=== PATIENT | male | born 1955 ===

== ENCOUNTER 2018-04-13 08:58 | Inpatient (IN) | payer OTHER ==
[2018-04-13 08:58] VITALS: BMI 30.9
[2018-04-13 11:12] LABS: BASO # 0.1 K/uL (0.0-0.2); EOS # 0.2 K/uL (0.0-0.7); EOS % 2.7 % (0.0-4.0); HEMOGLOBIN 14.2 g/dL (12.0-18.0); LYMPH # 1.9 K/uL (1.0-4.3); LYMPH % 24.4 % (20.0-40.0); MEAN CORPUSCULAR HEMOGLOBIN 32.9 pg (27.0-31.0); MEAN PLATELET VOLUME 7.8 fL (7.2-11.7); MONO # 0.5 K/uL (0.0-0.8); MONO % 6.8 % (0.0-10.0); NEUT # 5.1 K/uL (1.8-7.0); NEUT % 65.1 % (50.0-75.0); NRBC % 0.1 % (0.0-2.0); RBC 4.32 Mil/uL (4.40-5.90); RED CELL DISTRIBUTION WIDTH 12.4 % (11.5-14.5); WHITE BLOOD COUNT 7.9 K/uL (4.8-10.8)
[2018-04-13 11:24] LABS: ALB/GLOB RATIO 1.3 (1.0-2.1); ALBUMIN 4.2 g/dL (3.5-5.0); ALT/SGPT 26 U/L (21-72); AST/SGOT 23 U/L (17-59); BLOOD UREA NITROGEN 18 mg/dL (9-20); CALCIUM 9.2 mg/dl (8.6-10.4); GFR AFRICAN-AMERICAN > 60; GFR NON-AFRICAN AMERICAN > 60
[2018-04-13 12:01] LABS: INR 1.2; PROTHROMBIN TIME 12.6 SECONDS (9.7-12.2)
[2018-04-13] MEDS ORDERED: Enoxaparin 150 mg Syringe SC STA (12:20)
[2018-04-13] MEDS ORDERED: Enoxaparin 100 mg Syringe ONE (13:33)
--- NOTE | 2018-04-13 13:58 | C.PDOC ---
History Of Present Illness 62 y/o male presents to the ED complaining of left calf pain for the past couple of days. He admits to having a Hx of DVT approximately 13 years ago and was taking Coumadin at the time but was advised to stop taking medication by PCP. The patient denies any trauma, prolonged sitting, chest pain or SOB. Time Seen by Provider: 04/13/18 10:37 Chief Complaint (Nursing): Lower Extremity Problem/Injury History/Exam Limitations: no limitations Onset/Duration Of Symptoms: Days Current Symptoms Are (Timing): Still Present Recent travel outside of the [place]: No Past Medical History Reviewed: Historical Data, Nursing Documentation, Vital Signs Vital Signs: Last Vital Signs Temp 97.8 F 04/13/18 17:00 Pulse 82 04/13/18 17:00 Resp 20 04/13/18 17:00 BP 134/87 04/13/18 17:00 Pulse Ox 98 04/13/18 17:00 - Medical History PMH: Deep Vein Thrombosis (L leg) Other Surgeries: Drained fluid from scrotum - [facility] Procedures APPLICATION OF SPLINT (09/16/14) Family History: States: Unknown Family Hx - Social History Hx Tobacco Use: No Hx Alcohol Use: Yes Hx Substance Use: No - Immunization History Hx Tetanus Toxoid Vaccination: No Hx Influenza Vaccination: No Hx Pneumococcal Vaccination: No Review Of Systems Except As Marked, All Systems Reviewed And Found Negative. Constitutional: Negative for: Fever Cardiovascular: Negative for: Chest Pain Respiratory: Negative for: Shortness of Breath Musculoskeletal: Positive for: Leg Pain (left calf pain) Physical Exam - Physical Exam Appears: Well, Non-toxic, No Acute Distress Skin: Normal Color, Warm, No Rash Head: Atraumatic, Normacephalic Eye(s): bilateral: Normal Inspection, PERRL, EOMI Oral Mucosa: Moist Neck: Supple Chest: Symmetrical Cardiovascular: Rhythm Regular, No Murmur Respiratory: Normal Breath Sounds, No Rales, No Rhonchi, No Wheezing Extremity: Calf Tenderness (mild) Extremity: Bilateral: Other ( chronic venous stasis) Neurological/Psych: Oriented x3 Gait: Steady ED Course And Treatment - Laboratory Results Result Diagrams: 04/13/18 11:06 04/13/18 11:06 O2 Sat by Pulse Oximetry: 97 (RA) Pulse Ox Interpretation: Normal Medical Decision Making Medical Decision Making: Impression: 62 y/o male, with Hx of DVT 13 years ago, c/o left calf pain Plan: --BBK --EKG --CMP --CBC --PTT --PT --Lovenox 100 mg Progress: After labs and US were obtained the Hospitalist was called. The hospitalist recommended Lovenox and admission to medical floor. Disposition - Disposition Disposition: HOSPITALIZED Disposition Time: 12:00 Condition: STABLE - Clinical Impression Clinical Impression: Deep venous thrombosis of lower extremity - PA / CAREER TECHNICAL EDUCATION TEACHER / Resident Statement MD/DO has reviewed & agrees with the documentation as recorded. - Scribe Statement The provider has reviewed the documentation as recorded by the Scribe (Lisa Woods) Provider Attestation: All medical record entries made by the Scribe were at my direction and personally dictated by me. I have reviewed the chart and agree that the record accurately reflects my personal performance of the history, physical exam, medical decision making, and the department course for this patient. I have also personally directed, reviewed, and agree with the discharge instructions and disposition.
--- NOTE | 2018-04-13 14:00 | CP.PCM.HP ---
<Valentine White - Last Filed: 04/13/18 15:07> History of Present Illness - History of Present Illness History of Present Illness: PGY-1 Valentine White D.O. Medicine H&P for Dr. White's service: Troy Godinez is a 62 yo male with no past medical history who presents with Left calf pain. He states that the pain started about 3 days ago. He states that he got sneakers that were too small, and he wore them to workout at the gym. He describes his big toe on his left foot being white when he removed them but then this resolved later in the day. He states it was more painful when walking. He did not take or do anything to relieve the pain. Patient reports that he has had a DVT in the left leg previously approximately 15 years ago. At that time, he was given heparin in the hospital and then took Coumadin as an outpatient for 6 months. He denies swelling or redness. He denies any current medication use, including exogenous steroids. He denies trauma/injury or recent surgery. He denies a sedentary lifestyle, as he goes to the gym very often. He denies recent travel, including prolonged time on planes. The patient denies any loss of sensation, numbness, or tingling of the left leg. He denies pain elsewhere. He denies SOB or palpitations. PMH: DVT LLE 15 yrs ago Meds: denies All: NKA FH: Mom ()- T2DM Denies any cancers, blood disorders No children SH: Lives alone in Former smoker- quit 8 yrs ago, smoked many years Alcohol- 2 beers or whiskeys/week Denies illicit drug use, including IVDA PMD: none Present on Admission - Present on Admission Any Indicators Present on Admission: Yes History of DVT/PE: Yes History of Uncontrolled Diabetes: No Urinary Catheter: No Decubitus Ulcer Present: No Review of Systems - Constitutional Constitutional: absent: Chills, Fever, Headache, Weakness - EENT Eyes: absent: Blurred Vision, Change in Vision Ears: absent: Tinnitus Nose/Mouth/Throat: Nasal Obstruction. absent: Nasal Congestion, Sore Throat - Cardiovascular Cardiovascular: absent: Chest Pain, Dyspnea, Edema, Irregular Heart Rhythm - Respiratory Respiratory: absent: Dyspnea, Pain on Inspiration, Chest Congestion - Gastrointestinal Gastrointestinal: absent: Abdominal Pain, Constipation, Diarrhea, Nausea, Vomiting - Genitourinary Genitourinary: absent: Dysuria, Hematuria, Urinary Frequency, Urinary Hesitance - Musculoskeletal Musculoskeletal: Myalgias (Left calf). absent: Joint Swelling, Numbness, Tingling - Integumentary Integumentary: absent: Lesions, Pruritus, Rash, Swelling - Neurological Neurological: absent: Numbness, Headaches, Paresthesias, Sensory Deficit, Tingling, Weakness - Psychiatric Psychiatric: absent: Anxiety, Depression - Endocrine Endocrine: absent: Fatigue, Palpitations - Hematologic/Lymphatic Hematologic: absent: Easy Bleeding, Easy Bruising, Lymphadenopathy Past Patient History - Infectious Disease Hx of Infectious Diseases: None - Tetanus Immunizations Tetanus Immunization: Unknown - Past Medical History & Family History Past Medical History?: Yes Past Family History: Reviewed and not pertinent - Past Social History Smoking Status: Former Smoker (quit 8 yrs ago) Chewing Tobacco Use: No Cigar Use: No Occupation: finance Alcohol: Social Drugs: Denies Home Situation {Lives}: Alone Domestic Violence: Negative - PSYCHIATRIC Hx Substance Use: No - SURGICAL HISTORY Other/Comment: Drained fluid from scrotum - ANESTHESIA Hx Anesthesia: Yes Hx Anesthesia Reactions: No Meds Allergies/Adverse Reactions: Allergies Allergy/AdvReac Type Severity Reaction Status Date / Time No Known Allergies Allergy Verified 04/13/18 09:18 Physical Exam - Head Exam Head Exam: ATRAUMATIC, NORMAL INSPECTION, NORMOCEPHALIC - Eye Exam Eye Exam: EOMI, Normal appearance, PERRL - ENT Exam ENT Exam: Mucous Membranes Moist, Normal Exam - Neck Exam Neck exam: Positive for: Normal Inspection - Respiratory Exam Respiratory Exam: Clear to Auscultation Bilateral, NORMAL BREATHING PATTERN - Cardiovascular Exam Cardiovascular Exam: REGULAR RHYTHM, +S1, +S2 - GI/Abdominal Exam GI & Abdominal Exam: Normal Bowel Sounds, Soft - Rectal Exam Rectal Exam: Deferred - Extremities Exam Extremities exam: Positive for: calf tenderness (L lateral), full ROM, normal capillary refill, normal inspection, pedal pulses present. Negative for: joint swelling, pedal edema - Back Exam Back exam: NORMAL INSPECTION - Neurological Exam Neurological exam: Alert, CN II-XII Intact, Oriented x3 - Psychiatric Exam Psychiatric exam: Normal Affect, Normal Mood - Skin Skin Exam: Dry, Intact, Normal Color, Warm Results - Vital Signs Recent Vital Signs: Last Vital Signs Temp 99 F 08/16/18 13:42 Pulse 84 04/13/18 13:42 Resp 16 04/13/18 13:42 BP 126/75 04/13/18 13:42 Pulse Ox 97 04/13/18 13:58 - Labs Result Diagrams: 04/13/18 11:06 04/13/18 11:06 Labs: Laboratory Results - last 24 hr 04/13/18 04/13/18 04/13/18 11:06 11:06 11:06 WBC 7.9 RBC 4.32 L Hgb 14.2 Hct 40.6 MCV 94.0 MCH 32.9 H MCHC 35.0 RDW 12.4 Plt Count 173 MPV 7.8 Neut % (Auto) 65.1 Lymph % (Auto) 24.4 [place] % (Auto) 6.8 Eos % (Auto) 2.7 Baso % (Auto) 1.0 Neut # (Auto) 5.1 Lymph # (Auto) 1.9 [place] # (Auto) 0.5 Eos # (Auto) 0.2 Baso # (Auto) 0.1 PT 12.6 H INR 1.2 APTT 33 Sodium 139 Potassium 4.0 Chloride 103 Carbon Dioxide 25 Anion Gap 16 BUN 18 Creatinine 1.0 Est GFR ( Amer) > 60 Est GFR (Non-Af Amer) > 60 Random Glucose 115 H Calcium 9.2 Total Bilirubin 0.8 AST 23 ALT 26 Alkaline Phosphatase 76 Total Protein 7.5 Albumin 4.2 Globulin 3.3 Albumin/Globulin Ratio 1.3 Blood Type Antibody Screen 04/13/18 11:06 WBC RBC Hgb Hct MCV MCH MCHC RDW Plt Count MPV Neut % (Auto) Lymph % (Auto) [place] % (Auto) Eos % (Auto) Baso % (Auto) Neut # (Auto) Lymph # (Auto) [place] # (Auto) Eos # (Auto) Baso # (Auto) PT INR APTT Sodium Potassium Chloride Carbon Dioxide Anion Gap BUN Creatinine Est GFR ( Amer) Est GFR (Non-Af Amer) Random Glucose Calcium Total Bilirubin AST ALT Alkaline Phosphatase Total Protein Albumin Globulin Albumin/Globulin Ratio Blood Type O POSITIVE Antibody Screen Negative - EKG Data EKG Interpreted by: ER Physician EKG shows normal: Sinus rhythm Rate: Normal Assessment & Plan - Assessment and Plan (Free Text) Assessment: Patient is a 62 yo male without PMH who presents with L calf pain. He was found to have a LLE DVT. 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 Work-up for hypercoagulable states. Plan: DVT of LLE, unprovoked- patient reports previous LLE DVT 15 yrs ago - Lovenox 1 mg/kg (100 mg) SC BID - EKG 04/13 NSR - CT chest/abd/pelvis with IV contrast pending - Factor V, lupus panel, KADEEM, APL, PT gene pending - Hem/onc consulted (Dr. Vasquez) IVF: not indicated Diet: heart healthy: VTE ppx: SCDs contraindicated, on therapeutic Lovenox 100 mg SC BID GI ppx: Pepcid 20 mg PO BID Code status: full code <Brandi White V - Last Filed: 04/13/18 16:43> Results - Vital Signs Recent Vital Signs: Last Vital Signs Temp 97.3 F L 04/13/18 14:32 Pulse 90 04/13/18 14:32 Resp 20 04/13/18 14:32 BP 128/77 04/13/18 14:32 Pulse Ox 98 04/13/18 14:32 - Labs Result Diagrams: 04/13/18 11:06 04/13/18 11:06 Labs: Laboratory Results - last 24 hr 04/13/18 04/13/18 04/13/18 11:06 11:06 11:06 WBC 7.9 RBC 4.32 L Hgb 14.2 Hct 40.6 MCV 94.0 MCH 32.9 H MCHC 35.0 RDW 12.4 Plt Count 173 MPV 7.8 Neut % (Auto) 65.1 Lymph % (Auto) 24.4 [place] % (Auto) 6.8 Eos % (Auto) 2.7 Baso % (Auto) 1.0 Neut # (Auto) 5.1 Lymph # (Auto) 1.9 [place] # (Auto) 0.5 Eos # (Auto) 0.2 Baso # (Auto) 0.1 PT 12.6 H INR 1.2 APTT 33 Sodium 139 Potassium 4.0 Chloride 103 Carbon Dioxide 25 Anion Gap 16 BUN 18 Creatinine 1.0 Est GFR ( Amer) > 60 Est GFR (Non-Af Amer) > 60 Random Glucose 115 H Calcium 9.2 Total Bilirubin 0.8 AST 23 ALT 26 Alkaline Phosphatase 76 Total Protein 7.5 Albumin 4.2 Globulin 3.3 Albumin/Globulin Ratio 1.3 Blood Type Antibody Screen 04/13/18 11:06 WBC RBC Hgb Hct MCV MCH MCHC RDW Plt Count MPV Neut % (Auto) Lymph % (Auto) [place] % (Auto) Eos % (Auto) Baso % (Auto) Neut # (Auto) Lymph # (Auto) [place] # (Auto) Eos # (Auto) Baso # (Auto) PT INR APTT Sodium Potassium Chloride Carbon Dioxide Anion Gap BUN Creatinine Est GFR ( Amer) Est GFR (Non-Af Amer) Random Glucose Calcium Total Bilirubin AST ALT Alkaline Phosphatase Total Protein Albumin Globulin Albumin/Globulin Ratio Blood Type O POSITIVE Antibody Screen Negative Attending/Attestation - Attestation I have personally seen and examined this patient.: Yes I have fully participated in the care of the patient.: Yes I have reviewed all pertinent clinical information: Yes Notes (Text): Patient seen, examined, and case discussed with biomedical specialist. Patient seen in Fast Track Bed 4 in the emergency room. Patient reports for two days prior he has been having calf pain and associated swelling. Patient is not a current smoker, stopped for smoking for 8 years, denies weight loss (reports weight gain), denies recent surgery, denies trauma, patient reports he is very active on his feet. Patient does not see a doctor/GP. Patient reports he was last hospitalized one year for scrotol edema requring surgery intervention. I did ask him if he had his prostate check then and reports this was fine. Patient reports about 10-11 years ago, around 05/09 he had DVT in the same leg had heparin and completed coumadin. Patient noted to be heavy smoker back then. Case discussed with ED doctor as well since the prelim report is reading as distal DVT. However, in light of prior DVT hx, would advised for anticoagulation. The concern is why is patient is having an unprovoked if he reports he has quit smoking and essentially the pertient negatives as noted above. We will consult heme-oncology; We will obtain CT Chest/Abdomen/Pelvis with IV contrast to rule out overt malignancy. patient denies shortness of breathe and EKG is normal sinus rhythm. Assessment/Plan 1) Unprovoked DVT Assessment/Plan * Lovenox 1 mg/kg (100 mg) SC BID * EKG 04/13 NSR * CT chest/abd/pelvis with IV contrast pending * Factor V, lupus panel, KADEEM, APL, PT gene pending * Hem/onc consulted (Dr. Vasquez) * awaiting official report of venous US 2) Prophylactic measure * IVF: not indicated * Diet: heart healthy * VTE ppx: SCDs contraindicated given acute DVT * Lovenox 1mg/kg subq12 * GI ppx: Pepcid 20 mg PO BID
[2018-04-13 14:33] VITALS: RESP 20
[2018-04-13] MEDS ORDERED: Iodixanol 320 MG/ML 100 ML BOTTLE IV ONE (17:20)
--- NOTE | 2018-04-13 17:50 | CP.PCM.CON ---
History of Present Illness - History of Present Illness History of Present Illness: History from chart, patient is in CAT scan. 62 yo man with history of left lower extremity DVT admitted with pain in the left calf for a few days prior to admission. Does not have any obvious risk factors, no recent surgery, travel, or other acquired risks like diabetes, obesity. The patient says he has been living in his car for 2 days prior to finding that his left toe had turned white, associated with numbness. He also mentioned that he was wearing the wrong sized shoe, that irritated his toes H/O left lower extremity DVT around 13 years ago, was on Coumadin, for 6 months Past Patient History - Infectious Disease Hx of Infectious Diseases: None - Tetanus Immunizations Tetanus Immunization: Unknown - Past Medical History & Family History Past Medical History?: Yes Past Family History: Reviewed and not pertinent - Past Social History Smoking Status: Former Smoker (quit 8 yrs ago) Chewing Tobacco Use: No Cigar Use: No Occupation: finance Alcohol: Social Drugs: Denies Home Situation {Lives}: Alone Domestic Violence: Negative - CARDIAC Hx Cardiac Disorders: No - PULMONARY Hx Respiratory Disorders: No - NEUROLOGICAL Hx Neurological Disorder: No - HEENT Hx HEENT Problems: No - RENAL Hx Chronic Kidney Disease: No - ENDOCRINE/METABOLIC Hx Endocrine Disorders: No - HEMATOLOGICAL/ONCOLOGICAL Hx Blood Disorders: Yes Other/Comment: DVT - INTEGUMENTARY Hx Dermatological Problems: No - MUSCULOSKELETAL/RHEUMATOLOGICAL Hx Musculoskeletal Disorders: Yes Hx Falls: No Hx Fractures: Yes (right hand) - GASTROINTESTINAL Hx Gastrointestinal Disorders: No - GENITOURINARY/GYNECOLOGICAL Hx Genitourinary Disorders: No - PSYCHIATRIC Hx Substance Use: No - SURGICAL HISTORY Other/Comment: Drained fluid from scrotum - ANESTHESIA Hx Anesthesia: Yes Hx Anesthesia Reactions: No Meds Allergies/Adverse Reactions: Allergies Allergy/AdvReac Type Severity Reaction Status Date / Time No Known Allergies Allergy Verified 04/13/18 09:18 - Medications Medications: Current Medications Acetaminophen (Tylenol 325mg Tab) 650 mg PO Q6 PRN PRN Reason: Pain, Mild (1-3) Enoxaparin Sodium (Lovenox) 100 mg SC Q12 SHIVANI Famotidine (Pepcid) 20 mg PO BID SHIVANI Last Admin: 04/13/18 17:13 Dose: Not Given Results - Vital Signs Recent Vital Signs: Last Vital Signs Temp 97.8 F 04/13/18 17:00 Pulse 82 04/13/18 17:00 Resp 20 04/13/18 17:00 BP 134/87 04/13/18 17:00 Pulse Ox 97 04/13/18 17:22 - Labs Result Diagrams: 04/13/18 11:06 04/13/18 11:06 Labs: Laboratory Results - last 24 hr 04/13/18 04/13/18 04/13/18 11:06 11:06 11:06 WBC 7.9 RBC 4.32 L Hgb 14.2 Hct 40.6 MCV 94.0 MCH 32.9 H MCHC 35.0 RDW 12.4 Plt Count 173 MPV 7.8 Neut % (Auto) 65.1 Lymph % (Auto) 24.4 [place] % (Auto) 6.8 Eos % (Auto) 2.7 Baso % (Auto) 1.0 Neut # (Auto) 5.1 Lymph # (Auto) 1.9 [place] # (Auto) 0.5 Eos # (Auto) 0.2 Baso # (Auto) 0.1 PT 12.6 H INR 1.2 APTT 33 Sodium 139 Potassium 4.0 Chloride 103 Carbon Dioxide 25 Anion Gap 16 BUN 18 Creatinine 1.0 Est GFR ( Amer) > 60 Est GFR (Non-Af Amer) > 60 Random Glucose 115 H Calcium 9.2 Total Bilirubin 0.8 AST 23 ALT 26 Alkaline Phosphatase 76 Total Protein 7.5 Albumin 4.2 Globulin 3.3 Albumin/Globulin Ratio 1.3 Blood Type Antibody Screen 04/13/18 11:06 WBC RBC Hgb Hct MCV MCH MCHC RDW Plt Count MPV Neut % (Auto) Lymph % (Auto) [place] % (Auto) Eos % (Auto) Baso % (Auto) Neut # (Auto) Lymph # (Auto) [place] # (Auto) Eos # (Auto) Baso # (Auto) PT INR APTT Sodium Potassium Chloride Carbon Dioxide Anion Gap BUN Creatinine Est GFR ( Amer) Est GFR (Non-Af Amer) Random Glucose Calcium Total Bilirubin AST ALT Alkaline Phosphatase Total Protein Albumin Globulin Albumin/Globulin Ratio Blood Type O POSITIVE Antibody Screen Negative Assessment & Plan (1) Deep venous thrombosis of lower extremity Assessment and Plan: 62 yo man with left lower extremity DVT , recurrent disease, associated with immobilization, CAT scan pending. Patient is relatively asymptomatic, discussed risks of anticoagulation, he is aware of the need for AC. The patient will call me for the results of the hypercoagulable work up Status: Acute
--- NOTE | 2018-04-13 18:36 | CT ---
Date of service: 04/13/2018 PROCEDURE: CT Chest, Abdomen and Pelvis with intravenous contrast HISTORY: Unprovoked DVT COMPARISON: None available. TECHNIQUE: IV dose administered: Radiation dose: Total exam DLP = 1142.37 mGy-cm. This CT exam was performed using one or more of the following dose reduction techniques: Automated exposure control, adjustment of the mA and/or kV according to patient size, and/or use of iterative reconstruction technique. FINDINGS: CT CHEST WITH CONTRAST: LUNGS: Minimal linear scarring seen in the left lingular and middle lobe regions. . There is also a localized area of vague ground-glass opacity in the left anterior upper lobe. Mild atelectasis of the right lower lobe seen as well. Lung lainez are otherwise clear. MEDIASTINUM: Heart size is within range of normal. No significant pericardial effusion. At ascending thoracic aorta measures approximately 3.3 cm and descending thoracic aorta measures approximately 2.6 cm. There are filling defects seen within the distal aspect of the right main pulmonary artery extending superiorly into lobar and us proximal segmental branches of the right upper lobe as well as inferiorly into the right lower lobar and proximal segmental branches of the lower lobe pulmonary arteries consistent with pulmonary emboli. There are also filling defects seen within the distal left main pulmonary artery, upper lobes and lower lobe as well as the proximal segmental branches also consistent with pulmonary emboli. Pulmonary trunk measures approximately 2.8 cm. The central airways are midline and patent. No large central endoluminal lesions. Air is present throughout the esophagus. Small hiatal hernia. LYMPH NODES: Several mediastinal lymph nodes are present. PLEURA: Unremarkable. No pneumothorax. No pleural fluid. BONES: Minor multilevel degenerative spondylosis of the thoracic spine. There are no acute compression fractures no retropulsed fragments. Minor chronic appearing anterior stature loss of the L1 segment. OTHER FINDINGS: None. CT ABDOMEN AND PELVIS: LIVER: Liver is upper limits of normal measuring just over 18 cm in CC dimension. Mild diffuse fatty hepatic infiltration. . No obvious hepatic mass or collection. Portal and splenic veins are opacified. GALLBLADDER AND BILE DUCTS: Gallbladder is incompletely distended which presumably accounts for thick-walled appearance ; likely due to nonfasting. No intraluminal gallbladder calculi identified on this study. PANCREAS: Pancreas is slightly atrophic and fatty replaced. SPLEEN: Spleen exhibits normal size and attenuation pattern without mass collection or calcification. ADRENALS: No adrenal lesions are state identified. KIDNEYS AND URETERS: There is a 4.8 x 4.7 cm x 4.0 cm partially exophytic cyst arising from the lower pole left kidney. There is an additional tiny cortical cyst anterior aspect midpole left kidney. No evidence of nephrolithiasis or hydronephrosis. VASCULATURE: Unremarkable. No aortic aneurysm. BOWEL: Evaluation of the bowel is limited due to the lack of oral contrast material. The stomach is incompletely distended. Visualized loops of small bowel exhibit normal contour and caliber. No evidence of acute mechanical small bowel obstruction. APPENDIX: Normal-appearing appendix of best seen non coronal sequence image number [id number]. No periappendiceal inflammatory changes. . PERITONEUM: Unremarkable. No free fluid. No free air. Small of fat containing umbilical hernia. LYMPH NODES: Note made of multiple small nonspecific retroperitoneal lymph nodes. BLADDER: Unremarkable. REPRODUCTIVE: Suspect left-sided hydrocele extending superiorly into the inferior margin of the left inguinal canal. BONES: No acute compression fractures nor retropulsed fragments. Minor chronic anterior stature loss of the L1 segment. Mild multilevel degenerative spondylosis. OTHER FINDINGS: None. IMPRESSION: There are extensive bilateral upper and lower lobe pulmonary emboli . Note that these findings were discussed with 5T Nurse at approximately 6:16 p.m. with written down and read back verification. . Minor the linear atelectasis and or scarring changes the middle lobe and lingular regions. There is also a vague localized area of ground-glass opacity left anterior upper lung field. Probable left-sided hydrocele extending superiorly into the distal aspect left left inguinal canal. Large left renal cyst. Mild fatty hepatic infiltration. Incompletely distended gallbladder likely due to nonfasting state
[2018-04-14] MEDS ORDERED: Enoxaparin 100 mg Syringe SC SCH (01:35)
--- NOTE | 2018-04-14 06:52 | CP.PCM.PN ---
Subjective - Date & Time of Evaluation Date of Evaluation: 04/14/18 Time of Evaluation: 09:20 - Subjective Subjective: PGY-1 Valentine White D.O. Medicine progress note for Dr. Dunlap service: Objective - Vital Signs/Intake and Output Vital Signs (last 24 hours): Temp Pulse Resp BP Pulse Ox 97.2 F L 63 20 125/83 96 04/14/18 00:00 04/14/18 04:20 04/14/18 00:00 04/14/18 00:00 04/14/18 00:00 Intake and Output: 04/13/18 04/14/18 18:59 06:59 Intake Total 800 Balance 800 - Medications Medications: Current Medications Acetaminophen (Tylenol 325mg Tab) 650 mg PO Q6 PRN PRN Reason: Pain, Mild (1-3) Enoxaparin Sodium (Lovenox) 100 mg SC Q12 COUNTS INCLUDE 234 BEDS AT THE [facility] Last Admin: 04/14/18 00:36 Dose: 100 mg Famotidine (Pepcid) 20 mg PO BID COUNTS INCLUDE 234 BEDS AT THE [facility] Last Admin: 04/13/18 17:13 Dose: Not Given - Labs Labs: 04/13/18 11:06 04/13/18 11:06 PT 12.6 SECONDS (9.7-12.2) H 04/13/18 11:06 INR 1.2 04/13/18 11:06 APTT 33 SECONDS (21-34) 04/13/18 11:06 - Constitutional Appears: Well, No Acute Distress - Head Exam Head Exam: ATRAUMATIC, NORMAL INSPECTION, NORMOCEPHALIC - Eye Exam Eye Exam: EOMI, Normal appearance - ENT Exam ENT Exam: Mucous Membranes Moist, Normal Exam - Neck Exam Neck Exam: Normal Inspection - Respiratory Exam Respiratory Exam: Clear to Ausculation Bilateral, NORMAL BREATHING PATTERN - Cardiovascular Exam Cardiovascular Exam: REGULAR RHYTHM, +S1, +S2 - GI/Abdominal Exam GI & Abdominal Exam: Soft, Normal Bowel Sounds - Rectal Exam Rectal Exam: Deferred - Extremities Exam Extremities Exam: Full ROM, Normal Capillary Refill, Normal Inspection - Back Exam Back Exam: NORMAL INSPECTION - Neurological Exam Neurological Exam: Alert, Awake, CN II-XII Intact, Oriented x3 - Psychiatric Exam Psychiatric exam: Normal Affect, Normal Mood - Skin Skin Exam: Dry, Intact, Normal Color, Warm Assessment and Plan - Assessment and Plan (Free Text) Plan: Patient is a 62 yo male without PMH who presents with L calf pain. He was found to have a LLE DVT. 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 Work-up for hypercoagulable states. Plan: Bilateral pulmonary emboli and DVT of LLE, unprovoked- patient reports previous LLE DVT 15 yrs ago - Lovenox 1 mg/kg (100 mg) SC BID - EKG 04/13 NSR - CT chest/abd/pelvis with IV contrast 04/13: multiple b/l upper and lower pulmonary emboli, L anterior upper lung field ground-glass opacity - Factor V, lupus panel, KADEEM, APL, PT gene pending - Hem/onc consulted (Dr. Vasquez) Renal cyst - Seen on CT - Renal u/s pending IVF: not indicated Diet: heart healthy: VTE ppx: SCDs contraindicated, on therapeutic Lovenox 100 mg SC BID GI ppx: Pepcid 20 mg PO BID Code status: full code
[2018-04-14 07:42] LABS: INR 1.1
[2018-04-14 07:44] LABS: BASO % 0.6 % (0.0-2.0); EOS # 0.3 K/uL (0.0-0.7); HEMOGLOBIN 15.3 g/dL (12.0-18.0); LYMPH # 2.3 K/uL (1.0-4.3); LYMPH % 34.1 % (20.0-40.0); MEAN CELL VOLUME 94.1 fL (80.0-94.0); MEAN CORPUSCULAR HEMOGLOBIN 32.9 pg (27.0-31.0); MEAN CORPUSCULAR HGB CONC 34.9 g/dL (33.0-37.0); MEAN PLATELET VOLUME 7.8 fL (7.2-11.7); MONO # 0.5 K/uL (0.0-0.8); MONO % 7.2 % (0.0-10.0); NEUT # 3.7 K/uL (1.8-7.0); NEUT % 54.1 % (50.0-75.0); NRBC % 0.2 % (0.0-2.0); RBC 4.66 Mil/uL (4.40-5.90); RED CELL DISTRIBUTION WIDTH 12.3 % (11.5-14.5); WHITE BLOOD COUNT 6.8 K/uL (4.8-10.8)
[2018-04-14 08:18] LABS: ALB/GLOB RATIO 1.2 (1.0-2.1); ALBUMIN 4.3 g/dL (3.5-5.0); ALT/SGPT 24 U/L (21-72); AST/SGOT 32 U/L (17-59); BLOOD UREA NITROGEN 14 mg/dL (9-20); CALCIUM 9.4 mg/dl (8.6-10.4); GFR AFRICAN-AMERICAN > 60; GFR NON-AFRICAN AMERICAN > 60
--- NOTE | 2018-04-14 10:36 | CP.PCM.DIS ---
Provider - Provider Date of Admission: 04/13/18 12:21 Attending physician: Brandi White DO Primary care physician: none Consults: hem/onc (Dr. Vasquez) Time Spent in preparation of Discharge (in minutes): 45 Diagnosis - Discharge Diagnosis (1) Pulmonary emboli Status: Acute Priority: High (2) Deep vein thrombosis (DVT) of left lower extremity Status: Acute Priority: High Hospital Course - Lab Results Lab Results: Most Recent Lab Values WBC 6.8 K/uL (4.8-10.8) 04/14/18 07:27 RBC 4.66 Mil/uL (4.40-5.90) 04/14/18 07:27 Hgb 15.3 g/dL (12.0-18.0) 04/14/18 07:27 Hct 43.9 % (35.0-51.0) 04/14/18 07:27 MCV 94.1 fL (80.0-94.0) H 04/14/18 07:27 MCH 32.9 pg (27.0-31.0) H 04/14/18 07:27 MCHC 34.9 g/dL (33.0-37.0) 04/14/18 07:27 RDW 12.3 % (11.5-14.5) 04/14/18 07:27 Plt Count 199 K/uL (130-400) 04/14/18 07:27 MPV 7.8 fL (7.2-11.7) 04/14/18 07:27 Neut % (Auto) 54.1 % (50.0-75.0) 04/14/18 07:27 Lymph % (Auto) 34.1 % (20.0-40.0) 04/14/18 07:27 [place] % (Auto) 7.2 % (0.0-10.0) 04/14/18 07:27 Eos % (Auto) 4.0 % (0.0-4.0) 04/14/18 07:27 Baso % (Auto) 0.6 % (0.0-2.0) 04/14/18 07:27 Neut # (Auto) 3.7 K/uL (1.8-7.0) 04/14/18 07:27 Lymph # (Auto) 2.3 K/uL (1.0-4.3) 04/14/18 07:27 [place] # (Auto) 0.5 K/uL (0.0-0.8) 04/14/18 07:27 Eos # (Auto) 0.3 K/uL (0.0-0.7) 04/14/18 07:27 Baso # (Auto) 0.0 K/uL (0.0-0.2) 04/14/18 07:27 PT 12.0 SECONDS (9.7-12.2) 04/14/18 07:27 INR 1.1 04/14/18 07:27 APTT 43 SECONDS (21-34) H D 04/14/18 07:27 Sodium 142 mmol/L (132-148) 04/14/18 07:27 Potassium 3.9 mmol/L (3.6-5.2) 04/14/18 07:27 Chloride 102 mmol/L (98-107) 04/14/18 07:27 Carbon Dioxide 28 mmol/L (22-30) 04/14/18 07:27 Anion Gap 15 (10-20) 04/14/18 07:27 BUN 14 mg/dL (9-20) 04/14/18 07:27 Creatinine 1.1 mg/dL (0.8-1.5) 04/14/18 07:27 Est GFR ( Amer) > 60 04/14/18 07:27 Est GFR (Non-Af Amer) > 60 04/14/18 07:27 Random Glucose 113 mg/dL (75-110) H 04/14/18 07:27 Calcium 9.4 mg/dl (8.6-10.4) 04/14/18 07:27 Total Bilirubin 0.9 mg/dL (0.2-1.3) 04/14/18 07:27 AST 32 U/L (17-59) 04/14/18 07:27 ALT 24 U/L (21-72) 04/14/18 07:27 Alkaline Phosphatase 84 U/L (38-126) 04/14/18 07:27 Total Protein 7.8 g/dL (6.3-8.3) 04/14/18 07:27 Albumin 4.3 g/dL (3.5-5.0) 08/17/18 07:27 Globulin 3.6 gm/dL (2.2-3.9) 04/14/18 07:27 Albumin/Globulin Ratio 1.2 (1.0-2.1) 04/14/18 07:27 Blood Type O POSITIVE 04/13/18 11:06 Antibody Screen Negative 04/13/18 11:06 - Hospital Course Hospital Course: Troy Godinez is a 62 yo male with no past medical history who presents with Left calf pain. He states that the pain started about 3 days ago. He states that he got sneakers that were too small, and he wore them to workout at the gym. He describes his big toe on his left foot being white when he removed them but then this resolved later in the day. He states it was more painful when walking. He did not take or do anything to relieve the pain. Patient reports that he has had a DVT in the left leg previously approximately 15 years ago. At that time, he was given heparin in the hospital and then took Coumadin as an outpatient for 6 months. He denies swelling or redness. He denies any current medication use, including exogenous steroids. He denies trauma/injury or recent surgery. He denies a sedentary lifestyle, as he goes to the gym very often. He denies recent travel, including prolonged time on planes. The patient denies any loss of sensation, numbness, or tingling of the left leg. He denies pain elsewhere. He denies SOB or palpitations. Discharge Exam - Head Exam Head Exam: ATRAUMATIC, NORMAL INSPECTION, NORMOCEPHALIC Discharge Plan - Follow Up Plan Condition: STABLE Disposition: HOME/ ROUTINE Instructions: Deep Vein Thrombosis (Blood Clots in the Legs) (DC), Apixaban Additional Instructions: Patient is cleared for discharge per Drs. White and Christina. Patient is to establish care at the [facility] within one week of discharge ([phone]). The clinic will refer him to a toolsmith for screening colonoscopy. The patient will also follow-up with hot saw operator/oncologist Dr. Vasquez within one week of discharge. He will be able to receive lab results as an outpatient. Patient will be discharged with a prescription for an Eliquis starter pack, which he can fill at [facility] immediately after discharge. He will get further prescriptions for Eliquis through the [facility]. The importance of taking Eliquis as prescribed was stressed to the patient. If the patient mistakenly misses a dose, he is NOT to take a double dose. If symptoms recur or worsen, patient is instructed to return to the ED. Patient acknowledges understanding and agrees. Referrals: [facility] at [facility] [Outside] Celi Vasquez MD [Staff Provider] -
--- NOTE | 2018-04-14 13:00 | VASCLAB ---
Date of service: 04/13/2018 PROCEDURE: Left Lower Extremity Venous Duplex Exam. HISTORY: left calf pain - r/o DVT PRIORS: None. TECHNIQUE: Left common femoral, femoral, popliteal and posterior tibial, peroneal and great saphenous veins were evaluated. Flow was assessed with color Doppler, compressibility, assessment of phasic flow and augmentation response. Report prepared by JEANNE Renee, RVT FINDINGS: LEFT: 1. Common Femoral Vein: 1.1. Compressibility - Fully compressible: Thrombus - None : Flow - Phasic: Augmentation -Normal: Reflux - None. 2. Femoral Vein: 2.1. Compressibility - Fully compressible: Thrombus - None: Flow - Phasic: Augmentation -Normal: Reflux - None. 3. Popliteal Vein: 3.1. Compressibility - Fully compressible: Thrombus - None: Flow - Phasic: Augmentation -Normal: Reflux - None. 4. Posterior Tibial Vein: 4.1. Compressibility - Fully compressible: Thrombus - None: Flow - Phasic: Augmentation -Normal: Reflux - None. 5. Peroneal Vein: 5.1. Compressibility - Partial: Thrombus - Acute: Flow - Absent : Augmentation -None: Reflux - None. 6. Great Saphenous Vein: 6.1. Compressibility - Fully compressible: Thrombus - None: Flow - Phasic: Augmentation - Normal: Reflux - None. OTHER FINDINGS: KENZIE Valladares notified about the findings. IMPRESSION: Acute thrombosis of the left peroneal vein with severe reduction of the venous return. Normal venous flow noted in the right common femoral vein.
--- NOTE | 2018-04-14 13:28 | US ---
Renal ultrasound History: Renal cyst. Comparison: CT scan dated 04/13/2018 Technique: Real-time sonography was performed through the kidneys. Findings: Right kidney: 10.9 x 4.9 x 5.1 centimeters. Mild increased echogenicity of the renal parenchymal cortex suggestive for medical renal disease. No calculi or hydronephrosis. Limited evaluation of the aorta demonstrating prominent aorta with some atherosclerotic calcification and plaque. Visualized urinary bladder is grossly preserved. Left Kidney: 12.6 x 5.6 x 5.1 centimeters. Mild increased echogenicity of the renal parenchymal cortex suggestive for medical renal disease. No hydronephrosis. Lower pole hypoechoic cyst measuring 4.6 x 4.2 x 4.6 centimeters. Midpole hypoechoic cyst measuring 1.1 x 0.8 x 0.8 centimeters. Impression: Left renal cysts. Mild increased echogenicity of the bilateral renal parenchymal cortices suggestive for medical renal disease. Clinical correlation.
[2018-04-14 18:45] VITALS: O2SAT 95
--- NOTE | 2018-04-14 19:04 | CP.PCM.PN ---
<Valentine White - Last Filed: 04/14/18 19:01> Subjective - Date & Time of Evaluation Date of Evaluation: 04/14/18 Time of Evaluation: 09:35 - Subjective Subjective: PGY-1 Valentine White D.O. Medicine progress note for Dr. White's service: Patient seen and examined this morning. He states he is feeling well. He still has some mild pain in his left calf. He denies SUGGS, chest pain, SOB, palpitations. Later in the evening, prior to discharge, patient complained of lightheadedness and SUGGS. Patient was re-evaluated. Denies chest pain, palpitations, SOB. Denies head trauma. Will postpone discharge, hold Lovenox, and check CT head. Vitals wnl (HR 88, RR 20, BP 113/83, O2 95%). Objective - Vital Signs/Intake and Output Vital Signs (last 24 hours): Temp Pulse Resp BP Pulse Ox 98 F 88 20 113/83 95 04/14/18 18:44 04/14/18 18:44 04/14/18 18:44 04/14/18 18:44 04/14/18 18:44 - Medications Medications: Current Medications Acetaminophen (Tylenol 325mg Tab) 650 mg PO Q6 PRN PRN Reason: Pain, Mild (1-3) Enoxaparin Sodium (Lovenox) 100 mg SC Q12 [facility] Last Admin: 04/14/18 00:36 Dose: 100 mg Famotidine (Pepcid) 20 mg PO BID [facility] Last Admin: 04/14/18 17:33 Dose: Not Given - Labs Labs: 04/14/18 07:27 04/14/18 07:27 PT 12.0 SECONDS (9.7-12.2) 04/14/18 07:27 INR 1.1 04/14/18 07:27 APTT 43 SECONDS (21-34) H D 04/14/18 07:27 - Constitutional Appears: Well, Non-toxic, No Acute Distress - Head Exam Head Exam: ATRAUMATIC, NORMAL INSPECTION, NORMOCEPHALIC - Eye Exam Eye Exam: EOMI, Normal appearance, PERRL - ENT Exam ENT Exam: Mucous Membranes Moist, Normal Exam - Neck Exam Neck Exam: Normal Inspection - Respiratory Exam Respiratory Exam: Clear to Ausculation Bilateral, NORMAL BREATHING PATTERN. absent: Decreased Breath Sounds, Rales, Rhonchi, Wheezes, Respiratory Distress, Stridor - Cardiovascular Exam Cardiovascular Exam: REGULAR RHYTHM, +S1, +S2. absent: Tachycardia, Murmur - GI/Abdominal Exam GI & Abdominal Exam: Soft, Normal Bowel Sounds. absent: Tenderness - Rectal Exam Rectal Exam: Deferred - Extremities Exam Extremities Exam: Normal Inspection - Back Exam Back Exam: NORMAL INSPECTION - Neurological Exam Neurological Exam: Alert, Awake, CN II-XII Intact, Oriented x3 - Psychiatric Exam Psychiatric exam: Normal Affect, Normal Mood - Skin Skin Exam: Dry, Intact, Normal Color, Warm. absent: Diaphoretic Assessment and Plan (1) Pulmonary emboli Status: Acute (2) Deep vein thrombosis (DVT) of left lower extremity Status: Acute - Assessment and Plan (Free Text) Assessment: Patient is a 62 yo male without PMH who presents with L calf pain. He was found to have a LLE DVT. 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 Work-up for hypercoagulable states. Plan: Multiple b/l pulmonary emboli and DVT of LLE, unprovoked- patient reports previous LLE DVT 15 yrs ago - Lovenox 1 mg/kg (100 mg) SC BID- HOLD until after CT head results (pt complained of lightheadness and SUGGS just prior to discharge) - EKG 04/13 NSR - Echo 04/14 - CT chest/abd/pelvis with IV contrast pending - Factor V, lupus panel, KADEEM, APL, PT gene pending - Hem/onc consulted (Dr. Vasquez)- f/u next week IVF: not indicated Diet: heart healthy VTE ppx: SCDs contraindicated due to DVT GI ppx: Pepcid 20 mg PO BID- pt refusing Code status: full code Dispo: D/c to home tomorrow pending CT head results. Will begin Eliquis start pack and establish care at the [facility]. <Brandi White V - Last Filed: 04/15/18 11:24> Objective - Vital Signs/Intake and Output Vital Signs (last 24 hours): Temp Pulse Resp BP Pulse Ox 97.6 F 71 20 126/79 95 04/15/18 08:05 04/15/18 08:05 04/15/18 08:05 04/15/18 08:05 04/15/18 08:05 Intake and Output: 04/15/18 04/15/18 06:59 18:59 Intake Total 400 Balance 400 - Medications Medications: Current Medications Acetaminophen (Tylenol 325mg Tab) 650 mg PO Q6 PRN PRN Reason: Pain, Mild (1-3) Apixaban (Eliquis) 10 mg PO BID [facility] Stop: 04/22/18 11:16 Enoxaparin Sodium (Lovenox) 100 mg SC Q12 [facility] Last Admin: 04/14/18 00:36 Dose: 100 mg Famotidine (Pepcid) 20 mg PO BID [facility] Last Admin: 04/15/18 09:54 Dose: Not Given - Labs Labs: 04/15/18 07:01 04/15/18 07:01 PT 12.0 SECONDS (9.7-12.2) 04/14/18 07:27 INR 1.1 04/14/18 07:27 APTT 43 SECONDS (21-34) H D 04/14/18 07:27 Assessment and Plan (1) Pulmonary emboli Status: Acute (2) Deep vein thrombosis (DVT) of left lower extremity Status: Acute Attending/Attestation - Attestation I have personally seen and examined this patient.: Yes I have fully participated in the care of the patient.: Yes I have reviewed all pertinent clinical information, including history, physical exam and plan: Yes Notes (Text): This is late computer entry for 04/14/18. Patient seen, examined, and case discussed with medical equipment repair technician. Patient denies shortness of breathe, denies chest pain, denies palpitations, denies headache, denies abdominal pain. I have described to him the increase risk of bleeding associated with Eliquis, which does not have a reversal agent, so he has to be careful of any trauma or falls and to no double up on medication if he forgets to take his medication as directed. Patient was set to be discharged however in the evening he reported he had lightheadness. We held discharge until completed CT Head. pending results to determine discharge tomorrow. Assessment/Plan 1) Multiple b/l pulmonary emboli and DVT of LLE, unprovoked- patient reports previous LLE DVT 15 yrs ago Assessment/Plan * Lovenox 1 mg/kg (100 mg) SC BID- HOLD until after CT head results (pt complained of lightheadness and SUGGS just prior to discharge) * EKG 04/13 NSR * Echo 04/14: pending * CT chest/abd/pelvis with IV contrast (04/13/18): extensive b/l upper and lower lobe pulmonary emboli. Minor linear atelectasis and/or scarring changes the middle lobe and lingular regions. [place] localized area of ground glass opacity left anterior upper lung field. Possible left sided hydrocele extending superiorly into the distal aspect left left inguinal canal. Large left renal cyst. Mild hepatic infiltrations * Factor V, lupus panel, KADEEM, APL, PT gene pending * Hem/onc consulted (Dr. Vasquez)--->has made follow-up appointment for f/u next week * Patient denies shortness of breathe, chest pain, nor palpitations even upon ambulation * Unclear if related to sleeping in his car or underlying Malignancy * I have explained to him he should get his screening colonoscopy via GI, talk with his insurance to rule out colon cancer. * He reports he no longer smokes and denies recent trauma. Dispo: D/c to home tomorrow pending CT head results. Will begin Eliquis start pack and establish care at the [facility].
--- NOTE | 2018-04-15 06:33 | CT ---
Date of service: 04/14/2018 PROCEDURE: CT HEAD WITHOUT CONTRAST. HISTORY: lightheaded, headache COMPARISON: None available. TECHNIQUE: Axial computed tomography images were obtained through the head/brain without intravenous contrast. Radiation dose: Total exam DLP = 948 mGy-cm. This CT exam was performed using one or more of the following dose reduction techniques: Automated exposure control, adjustment of the mA and/or kV according to patient size, and/or use of iterative reconstruction technique. FINDINGS: HEMORRHAGE: No intracranial hemorrhage. BRAIN: Age-appropriate cerebral volume loss. VENTRICLES: Unremarkable. No hydrocephalus. CALVARIUM: Unremarkable. PARANASAL SINUSES: Unremarkable as visualized. No significant inflammatory changes. MASTOID AIR CELLS: Unremarkable as visualized. No inflammatory changes. OTHER FINDINGS: None. IMPRESSION: No acute intracranial abnormality. If symptoms persists, consider correlation with MRI. These findings were preliminarily reported at 7:41 p.m. on 04/14/[address] Bret Walker from [facility].
[2018-04-15 07:09] LABS: BASO % 0.6 % (0.0-2.0); EOS # 0.3 K/uL (0.0-0.7); EOS % 4.9 % (0.0-4.0); HEMOGLOBIN 14.6 g/dL (12.0-18.0); LYMPH # 1.8 K/uL (1.0-4.3); LYMPH % 29.6 % (20.0-40.0); MEAN CELL VOLUME 93.9 fL (80.0-94.0); MEAN CORPUSCULAR HEMOGLOBIN 32.7 pg (27.0-31.0); MEAN CORPUSCULAR HGB CONC 34.9 g/dL (33.0-37.0); MEAN PLATELET VOLUME 7.4 fL (7.2-11.7); MONO # 0.5 K/uL (0.0-0.8); MONO % 8.3 % (0.0-10.0); NEUT # 3.4 K/uL (1.8-7.0); NEUT % 56.6 % (50.0-75.0); NRBC % 0.1 % (0.0-2.0); RBC 4.46 Mil/uL (4.40-5.90); RED CELL DISTRIBUTION WIDTH 12.1 % (11.5-14.5)
[2018-04-15 07:49] LABS: ALB/GLOB RATIO 1.3 (1.0-2.1); ALT/SGPT 28 U/L (21-72); AST/SGOT 23 U/L (17-59); BLOOD UREA NITROGEN 15 mg/dL (9-20); CALCIUM 9.1 mg/dl (8.6-10.4); GFR AFRICAN-AMERICAN > 60; GFR NON-AFRICAN AMERICAN > 60
[2018-04-15 08:06] VITALS: BP 126/79; PULSE 71; TEMP 97.6
--- NOTE | 2018-04-15 11:08 | CP.PCM.DIS ---
Provider - Provider Date of Admission: 04/13/18 12:21 Attending physician: Brandi White DO Consults: Dr. Vasquez Time Spent in preparation of Discharge (in minutes): 31 Diagnosis - Discharge Diagnosis (1) Pulmonary emboli Status: Acute Priority: High (2) Deep vein thrombosis (DVT) of left lower extremity Status: Acute Priority: High Hospital Course - Lab Results Lab Results: Most Recent Lab Values WBC 6.0 K/uL (4.8-10.8) 04/15/18 07:01 RBC 4.46 Mil/uL (4.40-5.90) 04/15/18 07:01 Hgb 14.6 g/dL (12.0-18.0) 04/15/18 07:01 Hct 41.9 % (35.0-51.0) 04/15/18 07:01 MCV 93.9 fL (80.0-94.0) 04/15/18 07:01 MCH 32.7 pg (27.0-31.0) H 04/15/18 07:01 MCHC 34.9 g/dL (33.0-37.0) 04/15/18 07:01 RDW 12.1 % (11.5-14.5) 04/15/18 07:01 Plt Count 211 K/uL (130-400) 04/15/18 07:01 MPV 7.4 fL (7.2-11.7) 04/15/18 07:01 Neut % (Auto) 56.6 % (50.0-75.0) 04/15/18 07:01 Lymph % (Auto) 29.6 % (20.0-40.0) 04/15/18 07:01 [place] % (Auto) 8.3 % (0.0-10.0) 04/15/18 07:01 Eos % (Auto) 4.9 % (0.0-4.0) H 04/15/18 07:01 Baso % (Auto) 0.6 % (0.0-2.0) 04/15/18 07:01 Neut # (Auto) 3.4 K/uL (1.8-7.0) 04/15/18 07:01 Lymph # (Auto) 1.8 K/uL (1.0-4.3) 04/15/18 07:01 [place] # (Auto) 0.5 K/uL (0.0-0.8) 04/15/18 07:01 Eos # (Auto) 0.3 K/uL (0.0-0.7) 04/15/18 07:01 Baso # (Auto) 0.0 K/uL (0.0-0.2) 04/15/18 07:01 PT 12.0 SECONDS (9.7-12.2) 04/14/18 07:27 INR 1.1 04/14/18 07:27 APTT 43 SECONDS (21-34) H D 04/14/18 07:27 Sodium 140 mmol/L (132-148) 04/15/18 07:01 Potassium 3.8 mmol/L (3.6-5.2) 04/15/18 07:01 Chloride 103 mmol/L (98-107) 04/15/18 07:01 Carbon Dioxide 25 mmol/L (22-30) 04/15/18 07:01 Anion Gap 15 (10-20) 04/15/18 07:01 BUN 15 mg/dL (9-20) 04/15/18 07:01 Creatinine 1.0 mg/dL (0.8-1.5) 04/15/18 07:01 Est GFR ( Amer) > 60 04/15/18 07:01 Est GFR (Non-Af Amer) > 60 04/15/18 07:01 POC Glucose (mg/dL) 149 mg/dL (65-110) H 04/14/18 18:42 Random Glucose 115 mg/dL (75-110) H 04/15/18 07:01 Calcium 9.1 mg/dl (8.6-10.4) 04/15/18 07:01 Phosphorus 3.6 mg/dL (2.5-4.5) 04/15/18 07:01 Magnesium 2.0 mg/dL (1.6-2.3) 04/15/18 07:01 Total Bilirubin 0.6 mg/dL (0.2-1.3) 04/15/18 07:01 AST 23 U/L (17-59) 04/15/18 07:01 ALT 28 U/L (21-72) 04/15/18 07:01 Alkaline Phosphatase 73 U/L (38-126) 04/15/18 07:01 Total Protein 7.0 g/dL (6.3-8.3) 04/15/18 07:01 Albumin 4.0 g/dL (3.5-5.0) 04/15/18 07:01 Globulin 3.0 gm/dL (2.2-3.9) 04/15/18 07:01 Albumin/Globulin Ratio 1.3 (1.0-2.1) 04/15/18 07:01 Blood Type O POSITIVE 04/13/18 11:06 Antibody Screen Negative 04/13/18 11:06 - Hospital Course Hospital Course: As per H&P, "donny Godinez is a 62 yo male with no past medical history who presents with Left calf pain. He states that the pain started about 3 days ago. He states that he got sneakers that were too small, and he wore them to workout at the gym. He describes his big toe on his left foot being white when he removed them but then this resolved later in the day. He states it was more painful when walking. He did not take or do anything to relieve the pain. Patient reports that he has had a DVT in the left leg previously approximately 15 years ago. At that time, he was given heparin in the hospital and then took Coumadin as an outpatient for 6 months. He denies swelling or redness. He denies any current medication use, including exogenous steroids. He denies trauma/injury or recent surgery. He denies a sedentary lifestyle, as he goes to the gym very often. He denies recent travel, including prolonged time on planes. The patient denies any loss of sensation, numbness, or tingling of the left leg. He denies pain elsewhere. He denies SOB or palpitations. PMH: DVT LLE 15 yrs ago Meds: denies All: NKA FH: Mom ()- T2DM Denies any cancers, blood disorders No children SH: Lives alone in Former smoker- quit 8 yrs ago, smoked many years Alcohol- 2 beers or whiskeys/week Denies illicit drug use, including IVDA PMD: none" Patient hospitalized for unprovoked distal DVT and bilateral pulmonary embolus. Patient underwent workup including imaging and evaluated by echocardiography radiology technologist. Patient has a follow-up appointment with echocardiography radiology technologist next week. I have discussed bleeding risk with the patient in regards to Eliquis. He is aware to not combine with aspirin or alcohol which can thin out his blood more. Patient recommended to speak with his insurance in terms of GI workup since he has not had his screening colonoscopy. Patient had CT head following feeling lightheaded which is normal. This is a summary of patient's hospitalization. Prescription: 1) Eliquis Starter Pack 2) Samples Elqiuis 5mg PO BID (1 month supply) Patient will need renewal of script at his follow-up appointment. This is a summary of patient's hospitalization. Please see EMR for further detail of record. - Date & Time of H&P Date of H&P: 04/13/18 Discharge Exam - Head Exam Head Exam: ATRAUMATIC, NORMAL INSPECTION, NORMOCEPHALIC - Eye Exam Eye Exam: EOMI - ENT Exam ENT Exam: Mucous Membranes Moist - Respiratory Exam Respiratory Exam: Clear to PA & Lateral, NORMAL BREATHING PATTERN. absent: Rales, Rhonchi, Wheezes - Cardiovascular Exam Cardiovascular Exam: REGULAR RHYTHM, +S1, +S2 - GI/Abdominal Exam GI & Abdominal Exam: Normal Bowel Sounds, Soft. absent: Distended, Firm, Guarding, Rebound, Rigid, Tenderness - Extremities Exam Extremities exam: calf tenderness (mild left lower extremity), pedal pulses present - Back Exam Back exam: absent: CVA tenderness (L), CVA tenderness (R) - Neurological Exam Neurological exam: Alert, Oriented x3 - Psychiatric Exam Psychiatric exam: Anxious, Normal Mood - Skin Skin Exam: Dry, Intact, Normal Color, Warm Discharge Plan - Follow Up Plan Condition: STABLE Disposition: HOME/ ROUTINE Instructions: Deep Vein Thrombosis (Blood Clots in the Legs) (DC), Apixaban Additional Instructions: Patient is cleared for discharge per Drs. White and Christina. Patient is to establish care at the [facility] at [facility] within one week of discharge ([phone]). The clinic will refer him to a program director/morning show host for screening colonoscopy. The patient will also follow-up with echocardiography radiology technologist/oncologist Dr. Vasquez within one week of discharge. He will be able to receive lab results as an outpatient. Patient will be discharged with a prescription for an Eliquis starter pack, which he can fill at [facility] immediately after discharge. He will get further prescriptions for Eliquis through the [facility]. The importance of taking Eliquis as prescribed was stressed to the patient. If the patient mistakenly misses a dose, he is NOT to take a double dose. If symptoms recur or worsen, patient is instructed to return to the ED. Patient acknowledges understanding and agrees. Referrals: [facility] at [facility] [Outside] Celi Vasquez MD [Staff Provider] - Clinical Quality Measures - CQM - VTE Did patient receive overlap therapy during hosptialization?: Yes If yes, what was given to the patient?: PE/DVT Medical Reason for Overlap Therapy during Hospitalization: PE/DVT Is patient being discharged on overlap therapy?: No If no, please select a reason why:: Use of Anticoagulants Medical Reason for discharge Overlap Therapy: No Attending/Attestation - Attestation I have personally seen and examined this patient.: Yes I have fully participated in the care of the patient.: Yes I have reviewed all pertinent clinical information, including history, physical exam and plan: Yes Notes (Text): Patient seen, examined and case discussed with day-time resident. Patient seen at bedside. Patient denies acute complaints. CT head is negative. I have reinstructed him on his discharge instructions and followup including: * 1) f/u Heme-oncology as outpatient * 2) f/u GI for screening colonoscopy * 3) bleeding risk associated with eliquis and if he has black stool or BRBPR, to stop and be evaluated immediately; to not mix alcohol nor blood thinner given it will thin out blood more * 4) patient will likely need to f/u chest xray in a month to see if ground glass opacity is present; may need f/u with pulmonary given prior smoking history. This is summary of patient's hospitalization. Please see EMR for further details of record. Discharge Diagnoses: 1) Multiple b/l pulmonary emboli and DVT of LLE, unprovoked- patient reports previous LLE DVT 15 yrs ago Assessment/Plan * Lovenox 1 mg/kg (100 mg) SC BID- HOLD until after CT head results (pt complained of lightheadness and SUGGS just prior to discharge) * EKG 04/13 NSR * Echo 04/14: pending * CT chest/abd/pelvis with IV contrast (04/13/18): extensive b/l upper and lower lobe pulmonary emboli. Minor linear atelectasis and/or scarring changes the middle lobe and lingular regions. [place] localized area of ground glass opacity left anterior upper lung field. Possible left sided hydrocele extending superiorly into the distal aspect left left inguinal canal. Large left renal cyst. Mild hepatic infiltrations * Factor V, lupus panel, KADEEM, APL, PT gene pending * Hem/onc consulted (Dr. Vasquez)--->has made follow-up appointment for f/u next week * Patient denies shortness of breathe, chest pain, nor palpitations even upon ambulation * Unclear if related to sleeping in his car or underlying Malignancy * I have explained to him he should get his screening colonoscopy via GI, talk with his insurance to rule out colon cancer. * He reports he no longer smokes and denies recent trauma. 2) Renal Cysts Assessment/Plan * Left renal cysts noted. Mild increased echogencity of b/l renal parenchymal cortices suggestive of medical renal disease * outpatient monitoring 3) Lightheadness Assessment/Plan * Resolved * CT head is negative
--- NOTE | 2018-04-15 14:53 | CARD ---
APPROVED REPORT Date of service: 04/14/2018 EXAM: Two-dimensional and M-mode echocardiogram with Doppler and color Doppler. Other Information Quality : GoodRhythm : INDICATION Pulmonary Embolism 2D DIMENSIONS IVSd1.0 (0.7-1.1cm)LVDd4.0 (3.9-5.9cm) PWd0.9 (0.7-1.1cm)LVDs3.0 (2.5-4.0cm) FS (%) 25.1 %LVEF (%)50.2 (>50%) M-Mode DIMENSIONS Left Atrium (MM)2.82 (2.5-4.0cm)IVSd1.06 (0.7-1.1cm) Aortic Root4.07 (2.2-3.7cm)LVDd5.17 (4.0-5.6cm) Aortic Cusp Exc.2.32 (1.5-2.0cm)PWd0.98 (0.7-1.1cm) FS (%) 22 %LVDs4.02 (2.0-3.8cm) LVEF (%)49 (>50%) Mitral Valve MV E Vhfiffjt69.7cm/sMV A Uadcxnzb26.2cm/sE/A ratio0.7 TDI E/Lateral E'0.0E/Medial E'0.0 LEFT VENTRICLE The left ventricle is normal size. There is normal left ventricular wall thickness. Left ventricle systolic function is normal. The Ejection Fraction is 50-55%. There is normal LV segmental wall motion. Tissue Doppler imaging reveals abnormal left ventricular diastolic dysfunction. RIGHT VENTRICLE The right ventricle is normal size. There is normal right ventricular wall thickness. The right ventricular systolic function is normal. ATRIA The left atrium size is normal. The right atrium size is normal. The interatrial septum is intact with no evidence for an atrial septal defect. AORTIC VALVE The aortic valve is normal in structure. No aortic regurgitation is present. There is no aortic valvular stenosis. There is no aortic valvular vegetation. MITRAL VALVE The mitral valve is normal in structure. There is no evidence of mitral valve prolapse. There is no mitral valve stenosis. Mitral regurgitation is mild. TRICUSPID VALVE The tricuspid valve is normal in structure. There is no tricuspid valve regurgitation noted. There is no tricuspid valve prolapse or vegetation. PULMONIC VALVE The pulmonic valve is not well visualized. There is mild pulmonic valvular regurgitation. GREAT VESSELS The aortic root is normal in size. PERICARDIAL EFFUSION There is no significant pericardial effusion. <Conclusion> Left ventricle systolic function is normal. The Ejection Fraction is 50-55%. Diastolic dysfunction. No aortic regurgitation is present. Mitral regurgitation is mild. There is no tricuspid valve regurgitation noted. There is mild pulmonic valvular regurgitation.
== END 2018-04-15 13:24 | disposition home or self-care (01) | DRG 543 ==
LOC: C.ER 08:58 → C.9E 12:21 → C.5S 13:29
PROVIDERS: ADMIT Hospitalist; ATTEND Hospitalist
DX: I82.492 Acute embolism and thrombosis of other specified deep vein of left lower extremity (principal); I26.99 Other pulmonary embolism without acute cor pulmonale; N28.1 Cyst of kidney, acquired; Z86.718 Personal history of other venous thrombosis and embolism; Z87.891 Personal history of nicotine dependence; Z83.3 Family history of diabetes mellitus